=== PATIENT | male | born 2000 | race American Indian/Alaskan Native ===

== ENCOUNTER 2020-12-17 11:33 | Emergency (ER) | payer OTHER ==
[2020-12-17 11:50] VITALS: BP 151/80
--- NOTE | 2020-12-17 12:53 | Emergency Department Report ---
- General Chief complaint: Skin/Abscess/Foreign Body Stated complaint: CYSTS Time Seen by Provider: 12/17/20 11:59 Source: patient Mode of arrival: Ambulatory Limitations: No Limitations - History of Present Illness Initial comments: 20-year-old male with with morbid obesity presents to the hospital complaining of pain and swelling in the gluteal fold area. Patient has been investigating on his own he thinks he has a pilonidal cyst. No previous history in the past. Patient denies trauma, fever, or palpable swelling. Tetanus up-to-date. - Related Data Previous Rx's Medication Instructions Recorded Last Taken Type Ibuprofen [Motrin] 600 mg PO Q8H PRN #20 tablet 02/24/16 Unknown Rx Ibuprofen [Motrin] 800 mg PO Q8HR PRN #20 tablet 12/17/20 Unknown Rx Sulfamethoxazole/Trimethoprim 1 each PO BID #14 tablet 12/17/20 Unknown Rx [Bactrim DS TAB] Allergies Allergy/AdvReac Type Severity Reaction Status Date / Time No Known Allergies Allergy Unverified 12/17/20 11:50 Abscess Boil HPI - HPI Chief Complaint: Skin/Abscess/Foreign Body Stated Complaint: CYSTS Time Seen by Provider: 12/17/20 11:59 Home Medications: Previous Rx's Medication Instructions Recorded Last Taken Type Ibuprofen [Motrin] 600 mg PO Q8H PRN #20 tablet 02/24/16 Unknown Rx Ibuprofen [Motrin] 800 mg PO Q8HR PRN #20 tablet 12/17/20 Unknown Rx Sulfamethoxazole/Trimethoprim 1 each PO BID #14 tablet 12/17/20 Unknown Rx [Bactrim DS TAB] Allergies/Adverse Reactions: Allergies Allergy/AdvReac Type Severity Reaction Status Date / Time No Known Allergies Allergy Unverified 12/17/20 11:50 ED Review of Systems ROS: Stated complaint: CYSTS Other details as noted in HPI Comment: All other systems reviewed and negative ED Past Medical Hx - Social History Smoking Status: Never Smoker Substance Use Type: None - Medications Home Medications: Home Medications Medication Instructions Recorded Confirmed Last Taken Type Ibuprofen [Motrin] 600 mg PO Q8H PRN #20 tablet 02/24/16 Unknown Rx Ibuprofen [Motrin] 800 mg PO Q8HR PRN #20 tablet 12/17/20 Unknown Rx Sulfamethoxazole/Trimethoprim 1 each PO BID #14 tablet 12/17/20 Unknown Rx [Bactrim DS TAB] ED Physical Exam - General Limitations: No Limitations - Other Other exam information: General: No acute distress Head: Atraumatic Eyes: normal appearance ENT: Moist mucous membranes Neck: Normal appearance, no midline tenderness Chest: Clear to auscultation bilaterally CV: Regular rate and rhythm Abdomen: Soft, normal bowel sounds, nontender, nondistended, no rebound or guarding Gluteal area: No gross abnormality within gluteal fold visible on examination. Patient does have tenderness midline several inches down from vertex of gluteal crease. No erythema, warmth, or visible skin swelling. Back: Normal inspection Extremity: Normal inspection, full range of motion Neuro: Alert O x 3, no facial asymmetry, speech clear, no gross motor sensory deficit Psych: Appropriate behavior Skin: No rash ED Course Vital Signs 12/17/20 11:49 Temperature 98.7 F Pulse Rate 84 Respiratory 16 Rate Blood Pressure 151/80 [Left] O2 Sat by Pulse 96 Oximetry - Consultations Consultation #1: 12/17/20 13:[address] Egan on-call surgeon. Suggest empiric antibiotics, warm compress, outpatient follow-up with her in the office - Procedure Description Procedures done: Bedside ultrasound performed patient has approximately 1.6 x 1.2 cm circular fluid-filled sac at the area of tenderness of the gluteal fold. ED Medical Decision Making - Medical Decision Making 20-year-old morbid obese male presents to the hospital with pain and swelling in upper gluteal fold area. Clinic examination and ultrasound suggestive of pilonidal cyst without skin findings of cellulitis or clinical signs of infection. Patient will be empirically treated with antibiotics with recommendation of warm compresses and instructed to follow-up with surgeon. Case discussed with on-call surgeon. Tetanus up-to-date Critical Care Time: No Critical care attestation.: If time is entered above; I have spent that time in minutes in the direct care of this critically ill patient, excluding procedure time. ED Disposition Clinical Impression: Pilonidal cyst Disposition: 01 HOME / SELF CARE / HOMELESS Is pt being admited?: No Does the pt Need Aspirin: No Condition: Stable Instructions: Pilonidal Cyst Additional Instructions: Take the medication as prescribed. Follow-up with your doctor or doctor/clinic provided. Return if symptoms worsen as indicated by your discharge instructions. Prescriptions: Sulfamethoxazole/Trimethoprim [Bactrim DS TAB] 1 each PO BID #14 tablet Ibuprofen [Motrin] 800 mg PO Q8HR PRN #20 tablet PRN Reason: Pain , Severe (7-10) Referrals: JESSE EGAN DO [Staff Physician] - 3-5 Days (general surgeon ) Time of Disposition: 13:14
== END 2020-12-17 14:09 | disposition home or self-care (01) ==
LOC: ED 11:33
DX: L05.91 Pilonidal cyst without abscess (principal); Z79.899 Other long term (current) drug therapy
CPT/HCPCS: 99281; 99283